=== PATIENT | male | born 1985 | race American Indian/Alaskan Native ===

== ENCOUNTER 2018-03-22 16:16 | Emergency (ER) | payer SELFPAY ==
[2018-03-22 17:07] VITALS: BP 153/91
[2018-03-22] MEDS ORDERED: ROCEPHIN IM ONE (19:35)
[2018-03-22] MEDS ORDERED: XYLOCAINE 1% MPF 5 mL INFILTRATI ONE (19:35)
[2018-03-22] MEDS ORDERED: ZITHROMAX PO ONE (19:35)
--- NOTE | 2018-03-22 19:52 | Emergency Department Report ---
ED General Adult HPI - General Chief complaint: Skin/Abscess/Foreign Body Stated complaint: BUMP ON NECK Time Seen by Provider: 03/22/18 19:31 Source: patient Mode of arrival: Ambulatory Limitations: No Limitations - History of Present Illness Initial comments: pt is a 32 y/o aam who presents for STI and right lateral neck mass x 1 week pt does endorse having oral sex 1 week ago and symptoms started after orally pain swelling dysphagia and penile discarge yellow green with dysuria therd is no fever no chills no n/v symptoms are exacerbated by swallowing and voiding symptoms are relieved by nothing. Onset/Timin -: week(s) Location: mouth (throat), genitals (penile discharge ) Radiation: non-radiation Severity scale (0 -10): 4 Quality: burning, aching Consistency: intermittent Improves with: none Worsens with: other (swallowing urinating ) Associated Symptoms: other (dysuria dysphagia ). denies: chest pain, fever/ chills, headaches, nausea/vomiting, rash, syncope Treatments Prior to Arrival: none - Related Data Previous Rx's Medication Instructions Recorded Last Taken Type Benzocaine/Menth/Cetylpyrd 8 each MM Q2H PRN #3 packet 03/22/18 Unknown Rx [Cepacol X Strength] Doxycycline [Vibramycin CAP] 100 mg PO Q12HR #20 capsule 03/22/18 Unknown Rx Ibuprofen 800 mg PO TID PRN #30 tablet 03/22/18 Unknown Rx metroNIDAZOLE [Flagyl] 500 mg PO BID #20 tablet 03/22/18 Unknown Rx Allergies Allergy/AdvReac Type Severity Reaction Status Date / Time No Known Allergies Allergy Unverified 03/22/18 17:07 ED Review of Systems ROS: Stated complaint: BUMP ON NECK Other details as noted in HPI Constitutional: denies: chills, fever Eyes: denies: eye pain, eye discharge, vision change ENT: throat pain (right lateral swelling ). denies: ear pain Respiratory: no symptoms reported Cardiovascular: denies: chest pain, palpitations Endocrine: no symptoms reported Gastrointestinal: denies: abdominal pain, nausea, diarrhea Genitourinary: urgency, dysuria, frequency, discharge Musculoskeletal: denies: back pain, joint swelling, arthralgia Skin: denies: rash, lesions Neurological: denies: headache, weakness, paresthesias Psychiatric: denies: anxiety, depression Hematological/Lymphatic: denies: easy bleeding, easy bruising ED Past Medical Hx - Past Medical History Previous Medical History?: No - Surgical History Past Surgical History?: No - Social History Smoking Status: Current Every Day Smoker Substance Use Type: Alcohol - Medications Home Medications: Home Medications Medication Instructions Recorded Confirmed Last Taken Type Benzocaine/Menth/Cetylpyrd 8 each MM Q2H PRN #3 packet 03/22/18 Unknown Rx [Cepacol X Strength] Doxycycline [Vibramycin CAP] 100 mg PO Q12HR #20 capsule 03/22/18 Unknown Rx Ibuprofen 800 mg PO TID PRN #30 tablet 03/22/18 Unknown Rx metroNIDAZOLE [Flagyl] 500 mg PO BID #20 tablet 03/22/18 Unknown Rx ED Physical Exam - General Limitations: No Limitations General appearance: alert, in no apparent distress - Head Head exam: Present: atraumatic, normocephalic - Eye Eye exam: Present: normal appearance - ENT ENT exam: Present: mucous membranes moist, TM's normal bilaterally, normal external ear exam - Expanded ENT Exam Expanded Mouth exam: Present: tongue normal. Absent: drooling, trismus, muffled voice, tongue elevation Throat exam: Positive: tonsillar erythema, tonsillomegaly. Negative: tonsillar exudate, R peritonsillar mass, L peritonsillar mass - Neck Neck exam: Present: normal inspection, tenderness (right lateral ), full ROM, lymphadenopathy. Absent: thyromegaly - Respiratory Respiratory exam: Present: normal lung sounds bilaterally. Absent: respiratory distress, wheezes, rhonchi, chest wall tenderness - Cardiovascular Cardiovascular Exam: Present: regular rate, normal rhythm, normal heart sounds. Absent: systolic murmur, diastolic murmur, rubs, gallop - GI/Abdominal GI/Abdominal exam: Present: soft, normal bowel sounds. Absent: tenderness, guarding, rebound, rigid, organomegaly, mass, bruit, pulsatile mass, hernia - Rectal Rectal exam: Present: deferred - exam: Present: normal inspection External exam: Present: normal external exam. Absent: erythema, swelling, lesions, lacerations, ecchymosis, bleeding - Extremities Exam Extremities exam: Present: normal inspection, full ROM, normal capillary refill. Absent: tenderness, pedal edema, joint swelling, calf tenderness - Back Exam Back exam: Present: normal inspection, full ROM. Absent: tenderness, CVA tenderness (R), CVA tenderness (L), muscle spasm, paraspinal tenderness, vertebral tenderness, rash noted - Neurological Exam Neurological exam: Present: alert, oriented X3, CN II-XII intact, normal gait, reflexes normal. Absent: motor sensory deficit - Psychiatric Psychiatric exam: Present: normal affect, normal mood - Skin Skin exam: Present: warm, dry, intact, normal color. Absent: rash ED Course Vital Signs 03/22/18 17:04 Temperature 99.4 F Pulse Rate 84 Respiratory 16 Rate Blood Pressure 153/91 O2 Sat by Pulse 99 Oximetry ED Medical Decision Making - Lab Data Result diagrams: 03/22/18 19:51 03/22/18 19:51 Laboratory Tests 03/22/18 03/22/18 03/22/18 19:51 19:51 19:51 WBC 6.0 RBC 5.48 H Hgb 16.0 H Hct 46.3 H MCV 84 MCH 29 MCHC 35 H RDW 13.6 Plt Count 127 L Lymph % (Auto) 37.2 H [place] % (Auto) 8.0 H Eos % (Auto) 4.9 H Baso % (Auto) 0.5 Lymph # 2.2 [place] # 0.5 Eos # 0.3 Baso # 0.0 Seg Neutrophils % 49.4 Seg Neutrophils # 3.0 Sodium 141 Potassium 4.6 Chloride 104.6 Carbon Dioxide 26 Anion Gap 15 BUN 14 Creatinine 0.8 Estimated GFR > 60 BUN/Creatinine Ratio 18 Glucose 101 H Calcium 9.1 TSH 0.881 - Radiology Data Radiology results: report reviewed, image reviewed normal soft tissue neck - Medical Decision Making This is an STI with oral infection treated with Rocephin and Zithromax Decadron IM 1 plan DC was Flagyl and doxycycline and follow was outside [facility] for HIV and HSV screening patient verbalized understanding and agreement with discharge plan will be DC'd home stable condition at this time patient anti-inflammatory airway is most patent no exudate no lesions no stridor no wheezing Critical care attestation.: If time is entered above; I have spent that time in minutes in the direct care of this critically ill patient, excluding procedure time. ED Disposition Clinical Impression: STI (sexually transmitted infection) Pharyngitis Qualifiers: Pharyngitis/tonsillitis etiology: unspecified etiology Qualified Code(s): J02.9 - Acute pharyngitis, unspecified Disposition: TO HOME OR SELFCARE Is pt being admited?: No Does the pt Need Aspirin: No Condition: Good Instructions: Sexually Transmitted Diseases (ED) Prescriptions: Benzocaine/Menth/Cetylpyrd [Cepacol X Strength] 8 each MM Q2H PRN #3 packet PRN Reason: pain Doxycycline [Vibramycin CAP] 100 mg PO Q12HR #20 capsule Ibuprofen 800 mg PO TID PRN #30 tablet PRN Reason: Pain , Severe (7-10) metroNIDAZOLE [Flagyl] 500 mg PO BID #20 tablet Referrals: [facility] [Outside] - 3-5 Days Forms: Work/School Release Form(ED) Time of Disposition: 20:52
[2018-03-22 20:01] LABS: Basophils % (Auto) 0.5 % (0.0-1.8); Eosinophils # (Auto) 0.3 K/mm3 (0.0-0.4); Eosinophils % (Auto) 4.9 % (0.0-4.3); Hematocrit 46.3 % (35.5-45.6); Lymphocytes # (Auto) 2.2 K/mm3 (1.2-5.4); Lymphocytes % (Auto) 37.2 % (13.4-35.0); Mean Corpuscular HGB Conc 35 % (32-34); Mean Corpuscular Hemoglobin 29 pg (28-32); Mean Corpuscular Volume 84 fl (84-94); Monocytes # (Auto) 0.5 K/mm3 (0.0-0.8); Platelet Count 127 K/mm3 (140-440); Red Blood Count 5.48 M/mm3 (3.65-5.03); Red Cell Distribution Width 13.6 % (13.2-15.2)
[2018-03-22 20:18] LABS: BUN/Creatinine Ratio 18; Blood Urea Nitrogen 14 mg/dL (9-20); Calcium 9.1 mg/dL (8.4-10.2); Hemolysis Index 11
[2018-03-22] MEDS ORDERED: DECADRON IM ONE (20:22)
--- NOTE | 2018-03-22 20:32 | XRay Report ---
FINAL REPORT EXAM: XR NECK SOFT TISSUE HISTORY: mass mass/bone/lump on the right anterior side of the neck that is painful. No known injury. TECHNIQUE: Frontal and lateral views of the neck Comparison: None FINDINGS: The visualized bony structures and soft tissues are unremarkable. There is no evidence of compromise of the airway. IMPRESSION: 1. The visualized bony and soft tissues of the neck are unremarkable. However, a soft tissue mass or infectious process could be missed with plain film imaging. If further imaging is required, CT of the neck with IV contrast may be helpful.
== END 2018-03-22 20:59 | disposition home or self-care (01) ==
LOC: ED 16:16
DX: J02.9 Acute pharyngitis, unspecified (principal); Z20.2 Contact with and (suspected) exposure to infections with a predominantly sexual mode of transmission; F17.200 Nicotine dependence, unspecified, uncomplicated
CPT/HCPCS: 36415; 70360; 80048; 84443; 85025; 87116; 96372; 99284; J0696; J1100